=== PATIENT | male | born 1990 | race Caucasian/White ===

== ENCOUNTER 2016-09-07 14:15 | Emergency (ER) | payer OTHER ==
[~2016-09-07] VITALS: Ht 175.3 cm; Wt 63.5 kg
[2016-09-07 14:37] VITALS: BP 115/74
--- NOTE | 2016-09-07 14:43 | PHYS DOC ---
Adult General Chief Complaint Chief Complaint: UPPER EXTREMITY PAIN HPI HPI Patient is a 25 year old male presents to the emergency department with complaints of left elbow pain. He is employed by the [employer] and was unloading a truck when he slipped and fell from the back of the truck. He believes that his right ankle caught the back of the truck before falling completely to the ground. Patient states when he landed he landed on his left side, unsure as to whether the arm was extended, but did feel a pop and had onset of elbow pain. He has no other complaints, no headache, neck pain, no back pain, chest pain, no abdominal pain, hip pain, pelvic pain, no extremity pain. Review of Systems Review of Systems Constitutional: Denies fever or chills [] Eyes: Denies change in visual acuity, redness, or eye pain [] HENT: Denies nasal congestion or sore throat [] Respiratory: Denies cough or shortness of breath [] Cardiovascular: No additional information not addressed in HPI [] GI: Denies abdominal pain, nausea, vomiting, bloody stools or diarrhea [] : Denies dysuria or hematuria [] Musculoskeletal: Left elbow pain Integument: Denies rash or skin lesions [] Neurologic: Denies headache, focal weakness or sensory changes [] Endocrine: Denies polyuria or polydipsia [] Current Medications Current Medications Current Medications Medications (Trade) Dose Ordered Sig/[facility] Start Time Stop Time Status Last Admin Dose Admin Ibuprofen (Motrin) 800 mg 1X ONCE 09/07/16 15:00 09/07/16 15:01 DC 09/07/16 14:45 800 MG Allergies Allergies Allergies Coded Allergies Type Severity Reaction Last Updated Verified shellfish derived Allergy Severe anaphylaxis 09/07/16 Yes Physical Exam Physical Exam Constitutional: Well developed, well nourished, no acute distress, non-toxic appearance. [] HENT: Normocephalic, atraumatic, bilateral external ears normal, oropharynx moist, no oral exudates, nose normal. [] Eyes: PERRLA, EOMI, conjunctiva normal, no discharge. [] Neck: Normal range of motion, no tenderness, supple, no stridor. [] Cardiovascular:Heart rate regular rhythm, no murmur [] Lungs & Thorax: Bilateral breath sounds clear to auscultation [] Abdomen: Bowel sounds normal, soft, no tenderness, no masses, no pulsatile masses. [] Skin: Warm, dry, no erythema, no rash. [] Back: No tenderness, no CVA tenderness. [] Extremities: Left upper extremity, left shoulder left wrist exam unremarkable. Left elbow without swelling without abrasion without ecchymosis. Patient has full range of motion flexion extension however does have increased pain with pronation and supination. Neurovascular intact distally. Remainder of extremity exam is unremarkable. Neurologic: Alert and oriented X 3, normal motor function, normal sensory function, no focal deficits noted. [] Psychologic: Affect normal, judgement normal, mood normal. [] Current Patient Data Vital Signs Vital Signs Date Time Temp Pulse Resp B/P (MAP) Pulse Ox O2 Delivery O2 Flow Rate FiO2 09/07/16 14:37 98.3 87 18 98 Room Air 98.3 EKG EKG [] Radiology/Procedures Radiology/Procedures [][facility] [address] [place], [place] [id number] IMAGING REPORT Signed PATIENT: ARTURO SCHNEIDER ACCOUNT: [id number] : 1990 LOCATION: ER AGE: 25 SEX: M EXAM STATUS: REG ER ORD. PHYSICIAN: ALEKSANDRA OSMAN APRN REASON: fall, pain PROCEDURE: ELBOW LEFT 3V Left elbow, 3 views, 09/07/2016: History: Fall, pain No fracture or dislocation is identified. No joint effusion is evident. IMPRESSION: No acute left elbow abnormality is detected. DICTATED and SIGNED BY: KAYLYNN ALEXANDER MD DATE: 09/07/16 1503 CC: NO PCP; NON,STAFF; ALEKSANDRA OSMAN APRN ~ Course & Med Decision Making Course & Med Decision Making Pertinent Labs and Imaging studies reviewed. (See chart for details) [] Dragon Disclaimer Dragon Disclaimer This electronic medical record was generated, in whole or in part, using a voice recognition dictation system. Departure Departure Impression: Primary Impression: Strain of elbow, left Disposition: 01 HOME, SELF-CARE Condition: LEFT WITHOUT BEING SEEN Referrals: NO PCP (PCP) Patient Instructions: Elbow Injury Additional Instructions: Rest, ice, sling as needed for comfort. Follow-up with your primary care provider within 7 days. Turning the emergency department for an new symptoms or concerns or worsening of current condition. Scripts Ibuprofen (IBUPROFEN) 600 Mg Tablet 600 MG PO PRN Q6HRS Y for INFLAMMATION, #20 TAB Prov: ALEKSANDRA OSMAN APRN 09/07/16 ALEKSANDRA OSMAN APRN Sep 07, 2016 14:43
[2016-09-07] MEDS ORDERED: IBUPROFEN 800 MG TABLET. PO ONE (15:00)
--- NOTE | 2016-09-07 15:06 | RAD ---
Left elbow, 3 views, 09/07/2016: History: Fall, pain No fracture or dislocation is identified. No joint effusion is evident. IMPRESSION: No acute left elbow abnormality is detected.
[2016-09-07] MEDS ORDERED: IBUP-1007 PO (15:10)
== END 2016-09-07 15:24 | disposition home or self-care (01) ==
LOC: ER 14:15
DX: S46.812A Strain of other muscles, fascia and tendons at shoulder and upper arm level, left arm, initial encounter (principal); Z91.013 Allergy to seafood; W01.0XXA Fall on same level from slipping, tripping and stumbling without subsequent striking against object, initial encounter; Y93.89 Activity, other specified; Y92.89 Other specified places as the place of occurrence of the external cause; Y99.8 Other external cause status
CPT/HCPCS: 73080; 99284